=== PATIENT | female | born 1980 | race Caucasian/White ===

== ENCOUNTER → 2020-04-06 | Outpatient (CLI) | payer MEDICAID ==
[~2020-04-06] MED LIST: ACET-2708 MT; ALBU05 NEB; ALBU6.7H11 IH
== END | disposition home or self-care (01) ==
LOC: LAB 08:27
PROVIDERS: ATTEND Orthopaedic Surgery
DX: Z01.812 Encounter for preprocedural laboratory examination (principal); Z20.828 Contact with and (suspected) exposure to other viral communicable diseases; M75.42 Impingement syndrome of left shoulder
CPT/HCPCS: C9803; U0003

== ENCOUNTER 2020-04-09 05:21 | Day surgery (SDC) | payer MEDICAID ==
[~2020-04-09] VITALS: Ht 152.4 cm; Wt 90.7 kg
[~2020-04-09 05:21] MED LIST changes: -ACET-2708 MT
[2020-04-09] MEDS ORDERED: LACTATED RINGERS 1,000 ML IV SCH (06:00)
[2020-04-09 06:03] LABS: UCG SCREEN NEGATIVE
[2020-04-09] MEDS ORDERED: ACET-2708 MT (06:22)
[2020-04-09] MEDS ORDERED: MORPHINE SULFATE/PF 1MG/ML 10ML AMP ONE (07:12)
[2020-04-09] MEDS ORDERED: EPINEPHRINE 1:1000 1 MG/ML AMP ONE (07:13)
[2020-04-09] MEDS ORDERED: BUPIVACAINE HCL/EPINEPHRINE/PF 0.5%/0.0005 10ML ONE ×2 (07:13→08:53)
[2020-04-09] MEDS ORDERED: ROPIVACAINE HCL 10MG/ML 20 ML VIAL EPI ONE (07:40)
[2020-04-09] MEDS ORDERED: GLYCOPYRROLATE 0.2 MG/ML 2ML VIAL ONE (07:45)
[2020-04-09] MEDS ORDERED: FENTANYL CITRATE/PF 50MCG/ML 2ML VIAL ONE (07:45)
[2020-04-09] MEDS ORDERED: PROPOFOL 200MG/20ML VIAL IV ONE (07:45)
[2020-04-09] MEDS ORDERED: NEOSTIGMINE METHYLSULFATE 1MG/ML 10 ML VIAL ONE (07:45)
[2020-04-09] MEDS ORDERED: CEFAZOLIN SODIUM 1000MG/VIAL ONE (07:45)
[2020-04-09] MEDS ORDERED: SODIUM CHLORIDE 0.9% 10ML VIAL ONE (07:45)
[2020-04-09] MEDS ORDERED: MIDAZOLAM HCL 2 MG/2 ML VIAL ONE (07:45)
[2020-04-09] MEDS ORDERED: LIDOCAINE HCL/PF 1% 10 MG/ML 5ML VIAL ONE (07:45)
[2020-04-09] MEDS ORDERED: ROCURONIUM BROMIDE 10MG/ML VIAL 5ML IV ONE (07:45)
[2020-04-09] MEDS ORDERED: DEXAMETHASONE 4MG/ML 1ML VIAL ONE (07:46)
[2020-04-09] MEDS ORDERED: PHENYLEPHRINE HCL 10 MG/ML 1ML (IV VIAL) IV ONE (07:46)
[2020-04-09] MEDS ORDERED: EPHEDRINE SULFATE 50MG/ML VIAL ONE (07:46)
[2020-04-09] MEDS ORDERED: ONDANSETRON HCL 4MG/2ML INJ ONE (07:46)
[2020-04-09] MEDS ORDERED: SUCCINYLCHOLINE CHLORIDE 200MG/10ML IV ONE (07:46)
[2020-04-09] MEDS ORDERED: METOCLOPRAMIDE HCL 10MG/2ML VIAL ONE (07:46)
[2020-04-09] MEDS ORDERED: DIPHENHYDRAMINE 50MG/ML VIAL ONE (08:15)
[2020-04-09] MEDS ORDERED: BUPIVACAINE HCL/PF 0.25% (2.5MG/ML) 10ML ONE (08:44)
[2020-04-09] MEDS ORDERED: SODIUM CHLORIDE 0.9% 1,000 ML IV ONE (09:33)
[2020-04-09] MEDS ORDERED: MEPERIDINE HCL/PF 25MG/ML CPJ IV PRN (09:45)
[2020-04-09] MEDS ORDERED: MORPHINE SULFATE 2 MG/ML CPJ (NOT FOR IM USE) IV PRN (09:45)
[2020-04-09] MEDS ORDERED: HYDROMORPHONE HCL/PF 2MG/ML CPJ IV PRN (09:45)
[2020-04-09] MEDS ORDERED: ONDANSETRON HCL 4MG/2ML INJ IV PRN (09:45)
[2020-04-09] MEDS ORDERED: HYDROCODONE/ACETAMINOPHEN 10/325MG TABLET PO PRN (10:00)
== END 2020-04-09 12:15 | disposition home or self-care (01) ==
LOC: OR 05:21
PROVIDERS: ATTEND Orthopaedic Surgery
DX: M75.42 Impingement syndrome of left shoulder (principal); S43.432A Superior glenoid labrum lesion of left shoulder, initial encounter; G89.29 Other chronic pain; R53.83 Other fatigue; M25.512 Pain in left shoulder; R53.1 Weakness; M65.812 Other synovitis and tenosynovitis, left shoulder; J45.909 Unspecified asthma, uncomplicated; Z87.11 Personal history of peptic ulcer disease; X58.XXXA Exposure to other specified factors, initial encounter; Y93.89 Activity, other specified; Y92.89 Other specified places as the place of occurrence of the external cause; Y99.8 Other external cause status
CPT/HCPCS: 29822; 29826; 64415; 81025; 88304; 97166; J0171; J0330; J0690; J1100; J1200; J2250; J2274; J2370; J2405; J2704; J2710; J2765; J2795; J3010; J3490; A4565